=== PATIENT | male | born 1940 | race Caucasian/White ===

== ENCOUNTER 2018-03-12 11:04 | Observation (INO) | payer MEDICARE, BC ==
[~2018-03-12] VITALS: Ht 180.3 cm; Wt 74.8 kg
[~2018-03-12 11:04] MED LIST: ASPI-1265 PO; ATOR40TA PO; DONE-46 PO; ENAL10TA78 PO; FOLI-43 PO; GABA-530 PO; MEMA28CA PO; MULT-785 PO; NORT10CA2 PO; OMEG10006 PO; OMEP-84 PO; OXYGEN; SERT25TA PO
[2018-03-12 11:32] LABS: BASOPHILS % (AUTO) 0.4 % (0-1); EOSINOPHILS # (AUTO) 0.1 X10'3 (0-0.9); EOSINOPHILS % (AUTO) 2.1 % (0-6); HEMATOCRIT 42.4 % (42.0-52.0); HEMOGLOBIN 14.4 g/dl (14.0-17.9); LYMPHOCYTES # (AUTO) 1.4 X10'3 (1.1-4.8); LYMPHOCYTES % (AUTO) 22.9 % (21-51); MEAN CORPUSCULAR HEMOGLOBIN 31.9 PG (27.0-31.0); MEAN CORPUSCULAR VOLUME 93.8 FL (78-98); MEAN PLATELET VOLUME 8.5 FL (7.4-10.4); MONOCYTES # (AUTO) 0.7 X10'3 (0-0.9); NEUTROPHILS # (AUTO) 3.8 X10'3 (1.8-7.7); NEUTROPHILS % (AUTO) 63.6 % (42-75); PLATELET COUNT 170 X10'3 (140-440); RED BLOOD COUNT 4.52 X10'6 (4.70-6.10); RED CELL DISTRIBUTION WIDTH 14.1 % (11.5-14.5)
[2018-03-12 11:43] LABS: PARTIAL THROMBOPLASTIN TIME 25 SECONDS (22-32); PROTHROMBIN TIME 10.7 SECONDS (9.0-12.0)
[2018-03-12 11:48] LABS: ALANINE AMINOTRANSFERASE 26 U/L (12-78); ALBUMIN 3.9 G/DL (3.4-5.0); ALBUMIN/GLOBULIN RATIO 1.3 (1.1-1.5); ALKALINE PHOSPHATASE 59 IU/L (46-116); ANION GAP 7 (8-16); ASPARTATE AMINO TRANSFERASE 16 U/L (10-37); BILIRUBIN,TOTAL 0.6 MG/DL (0.1-1.0); BLOOD UREA NITROGEN 17 MG/DL (7-18); BUN/CREATININE RATIO 15.7 (5.4-32.0); CALCIUM 9.3 MG/DL (8.5-10.1); CHLORIDE 106 MMOL/L (99-107); CREATININE 1.08 MG/DL (0.60-1.10); GLUCOSE 78 MG/DL (70-104); POTASSIUM 4.3 MMOL/L (3.5-5.1); SODIUM 140 MMOL/L (135-145); TOTAL CARBON DIOXIDE 26.7 MMOL/L (24-32); TOTAL PROTEIN 6.9 G/DL (6.4-8.2); eGFR 66 ML/MIN
[2018-03-12] MEDS ORDERED: GABA-530 PO (11:54)
[2018-03-12] MEDS ORDERED: nitroGLYCERIN 0.4mg/hour patch TD ONE (12:30)
[2018-03-12] MEDS ORDERED: potassium Cl 20 mEq SR tablet PO PRN ×2 (12:50)
[2018-03-12] MEDS ORDERED: magnesium 1gm/100ml D5W IVPB 100 ML IV PRN (12:50)
[2018-03-12] MEDS ORDERED: magnesium 4gm in 100ml NS 100 ML IV PRN (12:50)
[2018-03-12] MEDS ORDERED: potassium Cl 40MEQ/NS 500ml 500 ML IV PRN ×2 (12:50)
[2018-03-12] MEDS ORDERED: acetaminophen 325mg tablet PO PRN (12:50)
[2018-03-12] MEDS ORDERED: ondansetron/PF 4mg/2ml inj IV PRN (12:50)
[2018-03-12] MEDS: aspirin 81mg tab.chew PO SCH (12:55)
[2018-03-12 15:00] VITALS: BP 126/73
[2018-03-12] MEDS: heparin, porcine 5000 units/ml vial SQ SCH (16:23)
[2018-03-12 19:00] VITALS: BP 123/60
[2018-03-12] MEDS: memantine 5mg tablet PO SCH (20:25)
[2018-03-12] MEDS: gabapentin 100mg capsule PO SCH (20:25)
[2018-03-12] MEDS ORDERED: donepezil 5mg tablet PO SCH (21:00)
[2018-03-12 23:00] VITALS: BP 125/74
[2018-03-13 03:00] VITALS: BP 151/89
[2018-03-13 06:00] VITALS: BP 149/71
[2018-03-13 06:06] LABS: BASOPHILS % (AUTO) 0.3 % (0-1); EOSINOPHILS # (AUTO) 0.1 X10'3 (0-0.9); EOSINOPHILS % (AUTO) 0.8 % (0-6); HEMATOCRIT 40.4 % (42.0-52.0); HEMOGLOBIN 13.6 g/dl (14.0-17.9); LYMPHOCYTES # (AUTO) 1.1 X10'3 (1.1-4.8); LYMPHOCYTES % (AUTO) 12.8 % (21-51); MEAN CORPUSCULAR HEMOGLOBIN 31.3 PG (27.0-31.0); MEAN CORPUSCULAR HGB CONC 33.7 % (33.0-36.5); MEAN PLATELET VOLUME 8.8 FL (7.4-10.4); MONOCYTES # (AUTO) 0.8 X10'3 (0-0.9); MONOCYTES % (AUTO) 9.4 % (2-12); NEUTROPHILS # (AUTO) 6.6 X10'3 (1.8-7.7); NEUTROPHILS % (AUTO) 76.7 % (42-75); PLATELET COUNT 154 X10'3 (140-440); RED BLOOD COUNT 4.35 X10'6 (4.70-6.10); RED CELL DISTRIBUTION WIDTH 14.1 % (11.5-14.5); WHITE BLOOD COUNT 8.6 X10'3 (4.5-11.0)
[2018-03-13 06:24] LABS: ALANINE AMINOTRANSFERASE 26 U/L (12-78); ALBUMIN 3.7 G/DL (3.4-5.0); ALBUMIN/GLOBULIN RATIO 1.3 (1.1-1.5); ALKALINE PHOSPHATASE 58 IU/L (46-116); ANION GAP 7 (8-16); ASPARTATE AMINO TRANSFERASE 16 U/L (10-37); BILIRUBIN,TOTAL 0.7 MG/DL (0.1-1.0); BLOOD UREA NITROGEN 15 MG/DL (7-18); BUN/CREATININE RATIO 13.6 (5.4-32.0); CALCIUM 8.9 MG/DL (8.5-10.1); CHLORIDE 106 MMOL/L (99-107); CHOL/HDL RATIO 2.4 (0.00-4.99); CHOLESTEROL 108 MG/DL (0-200); GLUCOSE 99 MG/DL (70-104); HDL CHOLESTEROL 45 MG/DL (35-60); LDL CHOLESTEROL 51 MG/DL (50-100); MAGNESIUM 1.9 MG/DL (1.5-2.4); POTASSIUM 4.1 MMOL/L (3.5-5.1); SODIUM 141 MMOL/L (135-145); TOTAL CARBON DIOXIDE 27.6 MMOL/L (24-32); TOTAL PROTEIN 6.6 G/DL (6.4-8.2); TRIGLYCERIDES 124 MG/DL (20-135); eGFR 65 ML/MIN
[2018-03-13] MEDS: heparin, porcine 5000 units/ml vial SQ SCH ×2 (07:27)
[2018-03-13] MEDS: memantine 5mg tablet PO SCH (07:28)
[2018-03-13] MEDS: gabapentin 100mg capsule PO SCH (07:29)
[2018-03-13] MEDS: aspirin 81mg tab.chew PO SCH (07:29)
[2018-03-13] MEDS ORDERED: donepezil 5mg tablet PO SCH (08:00)
[2018-03-13] MEDS ORDERED: folic acid 1mg tablet PO SCH (08:00)
[2018-03-13] MEDS ORDERED: pantoprazole 40mg Tablet.DR PO SCH (08:00)
[2018-03-13] MEDS ORDERED: atorvastatin 20mg tablet PO SCH (08:00)
[2018-03-13] MEDS ORDERED: OMEGA-3/DHA/EPA/FISH OIL 1 EACH CAPSULE.DR PO SCH (08:00)
[2018-03-13] MEDS ORDERED: multivitamins, therapeutics tablet PO SCH (08:00)
[2018-03-13] MEDS ORDERED: lisinopril 20mg tablet PO SCH (08:00)
[2018-03-13] MEDS ORDERED: K and/or MAG REPLACEMENT MC SCH (08:00)
[2018-03-13] MEDS ORDERED: metoprolol tartrate 25mg tablet PO SCH (08:45)
[2018-03-13] MEDS ORDERED: METO25TA6 PO (10:34)
[2018-03-13] MEDS ORDERED: NITR0.4T SL (10:34)
== END 2018-03-13 11:20 | disposition home or self-care (01) ==
LOC: ER 11:05 → ED HOLD 12:49 → PCU 3S 15:35 → CMPBEDREQ 19:31
PROVIDERS: ADMIT Family Medicine; ATTEND Family Medicine
DX: I25.110 Atherosclerotic heart disease of native coronary artery with unstable angina pectoris (principal); F03.90 Unspecified dementia, unspecified severity, without behavioral disturbance, psychotic disturbance, mood disturbance, and anxiety; E78.5 Hyperlipidemia, unspecified; I10 Essential (primary) hypertension; G47.33 Obstructive sleep apnea (adult) (pediatric); R47.01 Aphasia; Z79.82 Long term (current) use of aspirin; Z79.899 Other long term (current) drug therapy; Z87.891 Personal history of nicotine dependence; Z95.1 Presence of aortocoronary bypass graft; Z82.49 Family history of ischemic heart disease and other diseases of the circulatory system
CPT/HCPCS: 36415; 71045; 80053; 80061; 83735; 84484; 85025; 85610; 85730; 93005; 93306; 96372; 99285; G0378; J1644

== ENCOUNTER → 2018-04-18 | Outpatient (CLI) | payer MEDICARE, BC ==
[~2018-04-18] MED LIST changes: +METO25TA6 PO; +NITR0.4T SL; -NORT10CA2 PO; -OXYGEN; -SERT25TA PO
[2018-04-18 09:30] LABS: BASOPHILS % (AUTO) 0.5 % (0-1); EOSINOPHILS # (AUTO) 0.1 X10'3 (0-0.9); EOSINOPHILS % (AUTO) 2.5 % (0-6); HEMOGLOBIN 13.9 g/dl (14.0-17.9); LYMPHOCYTES % (AUTO) 16.5 % (21-51); MEAN CORPUSCULAR HEMOGLOBIN 31.4 PG (27.0-31.0); MEAN CORPUSCULAR HGB CONC 33.9 % (33.0-36.5); MEAN CORPUSCULAR VOLUME 92.6 FL (78-98); MEAN PLATELET VOLUME 8.2 FL (7.4-10.4); MONOCYTES # (AUTO) 0.6 X10'3 (0-0.9); MONOCYTES % (AUTO) 9.7 % (2-12); NEUTROPHILS # (AUTO) 4.1 X10'3 (1.8-7.7); NEUTROPHILS % (AUTO) 70.8 % (42-75); PLATELET COUNT 181 X10'3 (140-440); RED BLOOD COUNT 4.42 X10'6 (4.70-6.10); RED CELL DISTRIBUTION WIDTH 14.5 % (11.5-14.5); WHITE BLOOD COUNT 5.8 X10'3 (4.5-11.0)
[2018-04-18 09:40] LABS: ALBUMIN 3.8 G/DL (3.4-5.0); ANION GAP 8 (8-16); BLOOD UREA NITROGEN 17 MG/DL (7-18); BUN/CREATININE RATIO 17.7 (5.4-32.0); CALCIUM 9.1 MG/DL (8.5-10.1); CHLORIDE 104 MMOL/L (99-107); CREATININE 0.96 MG/DL (0.60-1.10); GLUCOSE 89 MG/DL (70-104); POTASSIUM 4.3 MMOL/L (3.5-5.1); SODIUM 142 MMOL/L (135-145); TOTAL CARBON DIOXIDE 29.8 MMOL/L (24-32); eGFR 76 ML/MIN
[2018-04-18 09:41] LABS: PARTIAL THROMBOPLASTIN TIME 25 SECONDS (22-32); PROTHROMBIN TIME 10.7 SECONDS (9.0-12.0)
== END | disposition home or self-care (01) ==
LOC: LAB 08:54
PROVIDERS: ATTEND Internal Medicine Interventional Cardiology
DX: I25.810 Atherosclerosis of coronary artery bypass graft(s) without angina pectoris (principal); I10 Essential (primary) hypertension; E78.4 Other hyperlipidemia; I49.3 Ventricular premature depolarization; R42 Dizziness and giddiness; G47.33 Obstructive sleep apnea (adult) (pediatric); F03.90 Unspecified dementia, unspecified severity, without behavioral disturbance, psychotic disturbance, mood disturbance, and anxiety; R09.89 Other specified symptoms and signs involving the circulatory and respiratory systems; R07.2 Precordial pain; Z95.0 Presence of cardiac pacemaker; Z85.828 Personal history of other malignant neoplasm of skin; Z98.52 Vasectomy status; Z79.82 Long term (current) use of aspirin; Z79.899 Other long term (current) drug therapy; Z87.891 Personal history of nicotine dependence
CPT/HCPCS: 36415; 80048; 85025; 85610; 85730

== ENCOUNTER 2018-04-23 13:57 | Day surgery (SDC) | payer MEDICARE, BC ==
[2018-04-23] VITALS (9 sets, daily range): BP systolic 129–151; BP diastolic 71–87
[~2018-04-23] VITALS: Ht 172.7 cm; Wt 76.8 kg
[2018-04-23] MEDS ORDERED: normal saline 1000ml 1,000 ML IV SCH (14:15)
[2018-04-23] MEDS ORDERED: LORazepam 0.5 MG tablet PO PRN (14:15)
[2018-04-23] MEDS ORDERED: diphenhydrAMINE 25mg capsule PO PRN (14:15)
[2018-04-23] MEDS ORDERED: METO25TA6 PO (14:32)
[2018-04-23] MEDS ORDERED: NIT10P TD (14:32)
[2018-04-23] MEDS ORDERED: OMEG-79 PO (14:32)
[2018-04-23] MEDS ORDERED: LIDOcaine 1% 30ml preserv. free vial ONE (16:21)
[2018-04-23] MEDS ORDERED: fentaNYL/PF 50MCG/1 ML 2ML syringe ONE (16:21)
[2018-04-23] MEDS ORDERED: midazolam 2 mg/2 ml injection ONE (16:21)
[2018-04-23] MEDS ORDERED: iohexol 350MG/ML 100ml bottle IV ONE (16:21)
[2018-04-23] MEDS ORDERED: iohexol 350 MG/ML 50ML vial IV ONE (17:12)
[2018-04-23] MEDS ORDERED: OXAZEpam 15mg capsule PO PRN (17:45)
[2018-04-23] MEDS ORDERED: proCHLORperazine 10 MG/2 ml inj IV PRN (17:45)
[2018-04-23] MEDS ORDERED: HYDROcodone/acetaminophen 10/325mg tab PO PRN (17:45)
[2018-04-23] MEDS ORDERED: nitroGLYCERIN 0.4mg SUBLingual tab SL PRN (17:45)
[2018-04-23] MEDS ORDERED: HYDROcodone/acetaminophen 5mg/325mg tablet PO PRN (17:45)
[2018-04-23] MEDS ORDERED: ondansetron/PF 4mg/2ml inj IV PRN (17:45)
== END 2018-04-23 21:00 | disposition home or self-care (01) ==
LOC: SSTAY O 13:57
PROVIDERS: ATTEND Internal Medicine Interventional Cardiology
DX: I25.708 Atherosclerosis of coronary artery bypass graft(s), unspecified, with other forms of angina pectoris (principal); I25.82 Chronic total occlusion of coronary artery; E78.5 Hyperlipidemia, unspecified; I10 Essential (primary) hypertension; G47.33 Obstructive sleep apnea (adult) (pediatric); F03.91 Unspecified dementia, unspecified severity, with behavioral disturbance; K21.9 Gastro-esophageal reflux disease without esophagitis; F32.9 Major depressive disorder, single episode, unspecified; I49.3 Ventricular premature depolarization; Z95.0 Presence of cardiac pacemaker; Z98.52 Vasectomy status; Z79.82 Long term (current) use of aspirin; Z90.49 Acquired absence of other specified parts of digestive tract; Z85.828 Personal history of other malignant neoplasm of skin; Z79.891 Long term (current) use of opiate analgesic; Z86.73 Personal history of transient ischemic attack (TIA), and cerebral infarction without residual deficits; Z87.891 Personal history of nicotine dependence; Z95.1 Presence of aortocoronary bypass graft; Z98.890 Other specified postprocedural states; Z79.899 Other long term (current) drug therapy; Z82.49 Family history of ischemic heart disease and other diseases of the circulatory system; Z81.1 Family history of alcohol abuse and dependence
CPT/HCPCS: 93005; 93459; 99152; 99153; A6257; C1760; C1769; J1644; J2250; J3010; J3490; J7030; Q0163; Q9967; A4620

== ENCOUNTER 2018-07-06 00:34 | Emergency (ER) | payer MEDICARE, BC ==
[~2018-07-06] VITALS: Ht 170.2 cm; Wt 64.0 kg
[~2018-07-06 00:34] MED LIST changes: +NIT10P TD; -NITR0.4T SL; +OMEG-79 PO; -OMEG10006 PO
[2018-07-06] MEDS ORDERED: normal saline 1000ML IV soln IVB ONE (01:05)
[2018-07-06] MEDS ORDERED: traZODone 150mg tablet PO STA (01:31)
[2018-07-06 01:43] LABS: BASOPHILS % (AUTO) 0.8 % (0-1); EOSINOPHILS # (AUTO) 0.1 X10'3 (0-0.9); EOSINOPHILS % (AUTO) 2.1 % (0-6); HEMATOCRIT 44.9 % (42.0-52.0); HEMOGLOBIN 14.9 g/dl (14.0-17.9); LYMPHOCYTES # (AUTO) 1.3 X10'3 (1.1-4.8); LYMPHOCYTES % (AUTO) 21.4 % (21-51); MEAN CORPUSCULAR HEMOGLOBIN 31.2 PG (27.0-31.0); MEAN CORPUSCULAR HGB CONC 33.3 % (33.0-36.5); MEAN CORPUSCULAR VOLUME 93.6 FL (78-98); MEAN PLATELET VOLUME 8.9 FL (7.4-10.4); MONOCYTES # (AUTO) 0.5 X10'3 (0-0.9); MONOCYTES % (AUTO) 8.7 % (2-12); NEUTROPHILS # (AUTO) 3.9 X10'3 (1.8-7.7); PLATELET COUNT 177 X10'3 (140-440); RED CELL DISTRIBUTION WIDTH 13.4 % (11.5-14.5); WHITE BLOOD COUNT 5.9 X10'3 (4.5-11.0)
[2018-07-06 02:01] LABS: ALANINE AMINOTRANSFERASE 29 U/L (12-78); ALBUMIN 3.9 G/DL (3.4-5.0); ALBUMIN/GLOBULIN RATIO 1.1 (1.1-1.5); ALKALINE PHOSPHATASE 64 IU/L (46-116); ANION GAP 9 (8-16); ASPARTATE AMINO TRANSFERASE 21 U/L (10-37); BILIRUBIN,TOTAL 0.5 MG/DL (0.1-1.0); CALCIUM 9.3 MG/DL (8.5-10.1); CHLORIDE 102 MMOL/L (99-107); CREATINE KINASE 106 U/L (39-308); CREATININE 1.06 MG/DL (0.60-1.10); GLUCOSE 98 MG/DL (70-104); SODIUM 139 MMOL/L (135-145); TOTAL CARBON DIOXIDE 28.3 MMOL/L (24-32); TOTAL PROTEIN 7.3 G/DL (6.4-8.2); eGFR 67 ML/MIN
[2018-07-06 02:02] LABS: ACETAMINOPHEN < 2.0 UG/ML (10-30); BLOOD UREA NITROGEN 18 MG/DL (7-18); POTASSIUM 4.2 MMOL/L (3.5-5.1)
[2018-07-06] MEDS ORDERED: TRAZ150T78 PO (02:24)
[2018-07-06 02:37] VITALS: BP 108/51
[2018-07-06] MEDS ORDERED: traZODone 150mg tablet PO SCH (20:00)
== END 2018-07-06 03:05 | disposition home or self-care (01) ==
LOC: ER 00:34
DX: F03.91 Unspecified dementia, unspecified severity, with behavioral disturbance (principal); I25.10 Atherosclerotic heart disease of native coronary artery without angina pectoris; I10 Essential (primary) hypertension; Z95.1 Presence of aortocoronary bypass graft; Z87.891 Personal history of nicotine dependence; Z79.82 Long term (current) use of aspirin
CPT/HCPCS: 36415; 70450; 71045; 80053; 80329; 82140; 82550; 84439; 84443; 85025; 96360; 99285; J7030

== ENCOUNTER 2019-01-04 16:58 | Inpatient (IN) | payer MEDICARE, BC | END 2019-01-07 13:00 | LOC: ER 16:58 → ORTHO 4S 23:07 | DX: R55 Syncope and collapse (principal); F03.90 Unspecified dementia, unspecified severity, without behavioral disturbance, psychotic disturbance, mood disturbance, and anxiety; E87.6 Hypokalemia; I10 Essential (primary) hypertension ==